=== PATIENT | male | born 1940 | race Caucasian/White ===

== ENCOUNTER → 2016-12-08 | Outpatient (CLI) | payer OTHER ==
[~2016-12-08] MED LIST: ASPI-146 PO; COMMODE 3-IN-11 MIS; ENOX40IN SQ; MELO-1 PO; MULTTAB67 PO; NORC5TAB PO; OMEGCAP PO; SACC1CAP3 PO; TURM500C4; WALKER WHEELS/F1 MIS
== END ==
LOC: CPRE 12:14
PROVIDERS: ATTEND Orthopaedic Surgery
DX: Z01.818 Encounter for other preprocedural examination (principal); M16.12 Unilateral primary osteoarthritis, left hip

== ENCOUNTER 2016-12-20 07:00 | Inpatient (IN) | payer OTHER, MEDICARE ==
[~2016-12-20] VITALS: Ht 165.1 cm; Wt 72.5 kg
[~2016-12-20 07:00] MED LIST changes: -ASPI-146 PO; -COMMODE 3-IN-11 MIS; -ENOX40IN SQ; -NORC5TAB PO; -OMEGCAP PO; -SACC1CAP3 PO; -TURM500C4; -WALKER WHEELS/F1 MIS
[2017-01-24] MEDS ORDERED: VANCOMYCIN 1000 MG/NS 250 ML (for <70 kg) IV SCH ×2 (06:15)
[2017-01-24] MEDS ORDERED: ceFAZolin 2 GM PREMIX 50 ML IV SCH (06:15)
[2017-01-24] MEDS ORDERED: DEXAMETHASONE SOD PHOS 20 MG/5 ML VIAL IV PRN (06:15)
[2017-01-24] MEDS ORDERED: METOPROLOL TARTRATE 25 MG TAB PO PRN (06:15)
[2017-01-24] MEDS ORDERED: SODIUM CHLORIDE 0.9% IV SCH ×2 (06:15→11:30)
[2017-01-24] MEDS ORDERED: INSULIN HUMAN REGULAR 1,000 UNITS/10 ML VIAL SQ PRN (06:15)
[2017-01-24] MEDS ORDERED: TRANEXAMIC ACID IV SCH ×2 (06:15→11:30)
[2017-01-24] MEDS ORDERED: CHLORHEXIDINE GLUCONATE 2 % 1 PACK (2 CLOTHS) TOPICAL PRN (06:15)
[2017-01-24] MEDS ORDERED: EXPAREL PERI-ARTICULAR INJECTION (TOTAL VOL. 60 ML) P-ARTICULR SCH ×2 (06:15)
[2017-01-24] MEDS ORDERED: LACTATED RINGER'S 1000 ML IV PRN (06:15)
[2017-01-24] MEDS ORDERED: SODIUM CHLORID 0.9% 500 ML IV PRN (06:15)
[2017-01-24] MEDS ORDERED: CHLORHEXIDINE GLUCONATE 4% SOLN 120 ML BTL TOPICAL SCH (06:15)
[2017-01-24] MEDS ORDERED: GENTAMICIN SULFATE 80 MG/2 ML VIAL ONE (06:17)
[2017-01-24] MEDS ORDERED: OMEGCAP PO (06:18)
[2017-01-24] MEDS ORDERED: TURM500C4 (06:18)
[2017-01-24] MEDS ORDERED: SACC1CAP3 PO (06:18)
[2017-01-24] MEDS ORDERED: ACETAMINOPHEN 1000 MG/100 ML 100 ML IV ONE (06:32)
[2017-01-24] MEDS ORDERED: FAMOTIDINE 20 MG/2 ML VIAL ONE (06:32)
--- NOTE | 2017-01-24 06:43 | HHI.DCPOC ---
Discharge Care Plan Diagnosis: (1) Osteoarthritis of left hip (2) Status post total hip replacement, left Your Health Problems Are: Difficulty with ADL Goals to Promote Your Health * To prevent worsening of your condition and complications * To maintain your health at the optimal level Directions to Meet Your Goals Take your medications as prescribed Follow your dietary instruction Follow activity as directed Keep your appointments as scheduled Take your immunizations and boosters as scheduled If your symptoms worsen call your PCP, if no PCP go to Urgent Care Center or Emergency Room Smoking is Dangerous to Your Health. Avoid second hand smoke Call the 24-hour hour crisis hotline for domestic abuse at Latrell Ybarra Jan 24, 2017 06:43
--- NOTE | 2017-01-24 06:45 | HHI.FF ---
Face to Face Verification Diagnosis: (1) Osteoarthritis of left hip (2) Status post total hip replacement, left Physical Therapy Gait training, Transfer training, bed to chair Hip: Total hip Left LE Weight Bearing: WB as tolerated Left LE Range of Motion: Active ROM Nursing Nursing: Prasanth daugherty Additional Instructions Do not change dressing unless saturated. First dressing change in the office. I have seen patient Emmanuel Hooks on 01/24/17. My clinical findings support the need for the requested home health care services because: Limited ability to care for self High risk of falls I certify that my clinical findings support that this patient is homebound because: Post-op weakness Unsteady gait/balance Latrell Ybarra Jan 24, 2017 06:45
[2017-01-24] MEDS ORDERED: COMMODE 3-IN-11 MIS (06:47)
[2017-01-24] MEDS ORDERED: WALKER WHEELS/F1 MIS (06:47)
[2017-01-24] MEDS ORDERED: SODIUM CHLOR 0.9% 1000 ML INJ 1,000 ML IV SCH (08:42)
[2017-01-24] MEDS ORDERED: diphenhydrAMINE HCL 50 MG/ML VIAL IV PUSH PRN (08:45)
[2017-01-24] MEDS ORDERED: ONDANSETRON HCL 4 MG/2 ML VIAL IVP PRN (08:45)
[2017-01-24] MEDS ORDERED: BISACODYL 10 MG SUPP RECTAL PRN (08:45)
[2017-01-24] MEDS ORDERED: ACETAMINOPHEN/HYDROcodone 325 MG/5 MG TAB PO PRN (08:45)
[2017-01-24] MEDS ORDERED: NALOXONE HCL 0.4 MG/ML AMP IV PUSH PRN (08:45)
[2017-01-24] MEDS ORDERED: SODIUM CHLORIDE 0.9% FLUSH 5 ML FLUSH IVF PRN (08:45)
[2017-01-24] MEDS ORDERED: MAGNESIUM HYDROXIDE SUSP 30 ML CUP PO PRN (08:45)
[2017-01-24] MEDS ORDERED: ALUMINUM/MAGNESIUM/SIMETH 30 ML CUP PO PRN (08:45)
[2017-01-24] MEDS ORDERED: MORPHINE SULFATE 4 MG/ML INJ IV PUSH PRN (08:45)
[2017-01-24] MEDS ORDERED: Post-op Orders (for Pharmacy) MISC XX ONE (08:45)
--- NOTE | 2017-01-24 08:46 | PD.OP ---
cc: Lc La MD Operative Report Date of Surgery: Jan 24, 2017 Preoperative Diagnosis: Left hip severe osteoarthritis Postoperative Diagnosis: Procedure: Same Anesthesia: Gen. Surgeon: cL La Treatment Plant Mechanic(s): ÁNGEL Gordon The surgical procedure was assisted by my Advanced Registered Nurse Practitioner. My STAIN MAKER presence was necessary throughout this case for the manipulation and positioning of the surgical extremity. My STAIN MAKER was assisting me throughout the duration of this procedure. The skill set of an Advance Registered Nurse Practitioner was medically necessary to complete this procedure. During the surgical case, the surgical supply assistant was working at the back table and the Advance Registered Nurse Practitioner was directly assisting me. Operation and Findings: IMPLANT DESCRIPTION: 1. [place] Gription Cup, acetabular size 54, with 2 screws. 2. [place] AltrX polyethylene, neutral. 4. [place] femoral stem size 13, no collar, standard offset. 5. Femoral head/neck metal, 36, +8.5. ESTIMATED BLOOD LOSS: 350 cc. JUSTIFICATION FOR PROCEDURE: The patient has end-stage osteoarthritis to the hip. There is an attached conservative measures pathway form in the chart that describes the nonoperative measures that were undertaken prior to consideration of surgical management. The patient understood the risks and benefits of surgical management. See my office notes for further details. PROCEDURE: The patient was brought back to the operative theatre. Adequate anesthesia was obtained. The patient received intravenous vancomycin and Ancef. The patient was carefully placed on the operative table. The lower extremity was prepped and draped in the usual sterile fashion. Fluoroscopic images were obtained. We made a standard anterior incision over the hip. We dissected through the TFL fascia, exposing the anterior capsule. Arthrotomy was performed in a T-shaped fashion. The capsule was tagged with a #2 FiberWire. End-stage arthritis was identified. Osteotomy was performed through the femoral neck exposing the acetabulum. Remnants of the labrum were resected and osteophytes were removed. We sequentially reamed the acetabulum. We trialed the hip and placed the final cup into position. This was done under fluoroscopic guidance to obtain the appropriate inclination and anteversion. The cup seemed to have good purchase but because of relatively soft bone we decided to stabilize this with 2 screws which were placed fluoroscopically which both had excellent purchase. A manhole cover was placed into the acetabular component. The initial polyethylene was being handled and dropped. Therefore, we used a new polyethylene. We then placed the final polyethylene into position and confirmed that it was well seated. Capsular attachments on the calcar and the inner aspect of the greater trochanter were resected. On the proximal aspect of the femur we used a rongeur , box osteotome, canal finder, sequential broaches and lateralizing rasp. We calcar planed the proximal femur. Then thoroughly irrigated the wound. We trialed the hip with the appropriate size stem. We placed the final stem in to position and trialed again. The hip was stable while it was externally rotated 70 degrees when the leg was lowered to the floor. The final head was applied, and final fluoroscopic images were obtained. The wound was thoroughly irrigated again. Interarticular injection of liposomal bupivacaine was given. The capsule was closed with #2 FiberWire and #1 Vicryl. The deep fascia was closed with a #2 Stratafix, followed by 2-0 Vicryl in the skin and raza. Postop plan is to weight-bear as tolerated. DVT prophylaxis will be performed with SCDyariel, MEME aragon, early mobilization, and Lovenox followed by aspirin. Lc La MD Jan 24, 2017 08:46
[2017-01-24] MEDS ORDERED: NORC5TAB PO (08:48)
[2017-01-24] MEDS ORDERED: ASPI-146 PO (08:48)
[2017-01-24] MEDS ORDERED: ENOX40IN SQ (08:48)
[2017-01-24] MEDS: SODIUM CHLORIDE 0.9% FLUSH 5 ML FLUSH IVF SCH ×2 (09:00→23:09)
[2017-01-24] MEDS ORDERED: DO NOT ADM ANY ANTICOAGULANT DRUGS PRN (09:03)
[2017-01-24] MEDS ORDERED: *morphine SULFATE 8 MG/ML PERIprocedure ONLY ONE (09:53)
--- NOTE | 2017-01-24 10:28 | RADRPT ---
EXAM DATE/TIME: 01/24/2017 09:42 [facility] COMPARISON: No previous studies available for comparison. INDICATIONS : Post-op left hip. MEDICAL HISTORY : None. SURGICAL HISTORY : None. ENCOUNTER: Initial ACUITY: 1 day PAIN SCORE: 0/10 LOCATION: Left Hip. FINDINGS: Examination of the left hip was performed with AP Pelvis. Left total hip arthroplasty. Both the femor al and acetabular components are properly positioned. No fracture. CONCLUSION: Appropriate postoperative appearance of the left hip status post total arthroplasty. Josse Farrell MD on January 24, 2017 at 10:25 Board Certified Radiologist. This report was verified electronically.
[2017-01-24] MEDS ORDERED: GLYCOPYRROLATE 1 MG/5 ML SYRINGE IV PUSH ONE (12:00)
[2017-01-24] MEDS ORDERED: PROPOFOL 200 MG/20 ML AMP IV ONE (12:00)
[2017-01-24] MEDS ORDERED: ONDANSETRON HCL 4 MG/2 ML VIAL IV PUSH ONE (12:00)
[2017-01-24] MEDS ORDERED: ePHEDrine/NS 25 MG/5 ML SYR IV ONE (12:00)
[2017-01-24] MEDS ORDERED: LIDOCAINE HCL 1% PF 5 ML AMPULE OTHER ONE (12:00)
[2017-01-24] MEDS ORDERED: MIDAZOLAM HCL 2 MG/2 ML VIAL IV ONE (12:00)
[2017-01-24] MEDS ORDERED: NEOSTIGMINE 3 MG/3 ML SYR IV ONE (12:00)
[2017-01-24] MEDS ORDERED: ROCURONIUM INJ 50 MG/5 ML SYRINGE IV PUSH ONE (12:00)
--- NOTE | 2017-01-24 12:12 | RADRPT ---
EXAM DATE/TIME: 01/24/2017 07:20 [facility] COMPARISON: No previous studies available for comparison. INDICATIONS : Left total hip arthroplasty. MEDICAL HISTORY : Unobtainable. SURGICAL HISTORY : Unobtainable. ENCOUNTER: Initial ACUITY: 1 day PAIN SCORE: Non-responsive. LOCATION: Left hip FINDINGS: 3 magnified C-arm spot views are centered over the hip and labeled left. There is a total hip prosthe sis in good position. No fracture seen on this style of acquisition. Air is noted within the joint. CONCLUSION: Limited images as detailed above. Emmanuel Limon Jr., MD on January 24, 2017 at 12:10 Board Certified Radiologist. This report was verified electronically.
[2017-01-24 14:20] VITALS: BP 138/85; PULSE 102; RESP 18; TEMP 96.6; O2SAT 98
[2017-01-24 20:05] VITALS: BP 140/76; PULSE 112; RESP 17; TEMP 96.9; O2SAT 99
[2017-01-24] MEDS ORDERED: ZOLPIDEM TARTRATE 5 MG TAB PO PRN (21:00)
[2017-01-25 00:40] VITALS: BP 123/64; PULSE 95; RESP 17; TEMP 97; O2SAT 97
[2017-01-25] MEDS: ACETAMINOPHEN/HYDROcodone 325 MG/5 MG TAB PO PRN ×4 (02:01→16:20)
[2017-01-25 04:00] VITALS: BP 127/71; PULSE 106; RESP 17; TEMP 99.6; O2SAT 97
[2017-01-25 06:56] LABS: HEMATOCRIT 32.6 % (39.0-51.0); MEAN CELL VOLUME 88.3 FL (80.0-100.0); MEAN CORPUSCULAR HEMOGLOBIN 29.2 PG (27.0-34.0); MEAN CORPUSCULAR HGB CONC 33.1 % (32.0-36.0); PLATELET COUNT 274 TH/MM3 (150-450); RED BLOOD COUNT 3.69 MIL/MM3 (4.50-5.90); REVIEW FLAG FINAL; WHITE BLOOD COUNT 14.5 TH/MM3 (4.0-11.0)
[2017-01-25] MEDS ORDERED: DEXAMETHASONE SOD PHOS 20 MG/5 ML VIAL IV ONE (07:45)
[2017-01-25 08:00] VITALS: BP 129/75; PULSE 114; RESP 18; TEMP 96.8; O2SAT 97
[2017-01-25] MEDS ORDERED: ENOXAPARIN SODIUM 40 MG/0.4 ML SYRINGE SQ SCH (08:00)
[2017-01-25 12:00] VITALS: BP 130/71; PULSE 97; RESP 18; TEMP 96.5; O2SAT 98
[2017-01-25 15:25] VITALS: BP 159/72; PULSE 97; RESP 14; TEMP 98.2; O2SAT 97
--- NOTE | 2017-01-25 16:51 | PD.ORT.PN ---
Subjective Post Op Day #: 1 Subjective Remarks Patient is OOB ambulating about the room. Patient reports minimal pain. Patient states he is extremely happy with his hip. Patient requesting to go home tonight. Objective Vitals Vital Signs Date Time Temp Pulse Resp B/P (MAP) Pulse Ox O2 Delivery O2 Flow Rate FiO2 01/25/17 15:25 98.2 97 14 159/72 (101) 97 01/25/17 12:00 96.5 97 18 130/71 (90) 98 01/25/17 08:00 96.8 114 18 129/75 (93) 97 01/25/17 04:00 99.6 106 17 127/71 (89) 97 01/25/17 00:40 97.0 95 17 123/64 (83) 97 01/24/17 20:05 96.9 112 17 140/76 (97) 99 I/O 01/24/17 01/24/17 01/24/17 01/25/17 01/25/17 01/25/17 06:59 14:59 22:59 06:59 14:59 22:59 Intake Total 1747.25 ml 360 ml 340 ml Output Total 500 ml 250 ml Balance 1247.25 ml 360 ml 90 ml Intake Oral 240 ml 360 ml 240 ml IV Total 107.25 ml 100 ml Other 1400 ml Output Urine Total 350 ml 250 ml Estimated Blood Loss 150 ml # Voids 1 # Bowel Movements 0 0 Result Diagram: 01/25/17 0553 Procedures Left AIYANA Objective Remarks Dressing changed today with scant serosanguineous drainage. Incision is well approximated with dermabond mesh intact. No redness or s/s of infection. Calf is soft and nontender to palpation. EHL/TA/G intact. 2+ pedal pulse. + SILT. Assessment & Plan Ortho Post Op Day #: 1 Problem List: Assessment and Plan POD #1: Left AIYANA 1. WBAT LLE 2. Lovenox followed by ASA for DVT prophylaxis 3. Ice to the left knee PRN 4. Stable for discharge home with home health tonight per ortho. 5. F/U in the office with Dr. La or ÁNGEL Valdes as previously scheduled. Latrell Ybarra Jan 25, 2017 16:51
[2017-01-25] MEDS ORDERED: MULTIVITAMINS/MINERALS THERAPEUTIC TAB PO SCH (21:00)
[2017-01-25] MEDS ORDERED: DOCUSATE SODIUM 100 MG CAP PO SCH (21:00)
== END 2017-01-25 17:18 | disposition home health service (06) | DRG 470 ==
LOC: EDUNIT# 07:00 → HSDI 01-24 05:45 → N06B 01-24 14:02
PROVIDERS: ADMIT Orthopaedic Surgery; ATTEND Orthopaedic Surgery
PROC: 0SRB0JA Replacement of Left Hip Joint with Synthetic Substitute, Uncemented, Open Approach (ICD-10-PCS; principal; 2017-01-24 06:44)
DX: M16.12 Unilateral primary osteoarthritis, left hip (principal)
CPT/HCPCS: 73502; 76000; 85027; 86850; 86900; 86901; C1776; C9290; J0131; J0690; J1100; J1580; J1650; J2250; J2270; J2405; J2710; J3010; J3370; J7030; J7050; J7120

== ENCOUNTER 2016-12-28 07:46 | Day surgery (SDC) | payer OTHER ==
[~2016-12-28] VITALS: Ht 165.1 cm; Wt 76.6 kg
[2016-12-28] MEDS ORDERED: IOHEXOL 350 MG/ML 100 ML BTL (for Cath Lab) OTHER ONE (07:47)
[2016-12-28] MEDS ORDERED: diphenhydrAMINE HCL 50 MG/ML VIAL ONE (08:18)
[2016-12-28] MEDS ORDERED: methylPREDNISolone SOD SUCC 125 MG/2 ML VIAL ONE (08:18)
[2016-12-28 08:39] VITALS: BP 159/100; PULSE 80; RESP 17; TEMP 98.2; O2SAT 97
[2016-12-28 09:00] LABS: AUTOMATED NEUTROPHIL # 4.5 TH/MM3 (1.8-7.7); BASOPHIL % 0.3 % (0.0-2.0); EOSINOPHIL # 0.1 TH/MM3 (0-0.4); EOSINOPHIL % 1.4 % (0.0-4.0); HEMATOCRIT 38.8 % (39.0-51.0); HEMO FLAGS DIFF FINAL; LYMPH % 22.9 % (9.0-44.0); LYMPHOCYTE # 1.7 TH/MM3 (1.0-4.8); MEAN CELL VOLUME 90.7 FL (80.0-100.0); MEAN CORPUSCULAR HEMOGLOBIN 29.7 PG (27.0-34.0); MEAN CORPUSCULAR HGB CONC 32.8 % (32.0-36.0); MONO % 12.9 % (0.0-8.0); NEUT % 62.5 % (16.0-70.0); PLATELET COUNT 237 TH/MM3 (150-450); RED BLOOD COUNT 4.28 MIL/MM3 (4.50-5.90); RED CELL DISTRIBUTION WIDTH 14.1 % (11.6-17.2); WHITE BLOOD COUNT 7.2 TH/MM3 (4.0-11.0)
[2016-12-28 09:07] LABS: APTT (PATIENT) 31.6 SEC (24.3-30.1); INTERNATIONAL NORMALIZED RATIO 1.1 RATIO
[2016-12-28 09:14] LABS: BICARBONATE 30.2 MEQ/L (21.0-32.0)
[2016-12-28] MEDS ORDERED: HEPARIN-NS/PF INJ 1,000 ML ONE (09:42)
[2016-12-28] MEDS ORDERED: MIDAZOLAM HCL 2 MG/2 ML VIAL ONE (09:43)
[2016-12-28] MEDS ORDERED: NITROGLYCERIN INJ 5 ML ONE (09:44)
[2016-12-28] MEDS ORDERED: HEPARIN SODIUM - IV 10,000 UNITS/10 ML VIAL ONE (09:44)
[2016-12-28] MEDS ORDERED: VERAPAMIL HCL 5 MG/2 ML VIAL ONE (09:44)
[2016-12-28] MEDS ORDERED: MISC INFORMATION XX ONE (11:00)
[2016-12-28] MEDS ORDERED: FAMOTIDINE 20 MG/2 ML VIAL ONE (11:03)
--- NOTE | 2016-12-28 11:06 | CATHPROC ---
O-film HIS Report Study Information Study Number Admission Scheduled Start Study Start [id number] Dec 28 2016 7:46AM 12/28/2016 Dec 28 2016 9:21AM David Service Cardiac Catheterization Admit Source Facility Department Other [facility] - Program Project Manager Physician and Clinical Staff Initial Ayaan Hatfield Director Of User Experience So Carrion,EDITA Other Timothy Hdz,RT(R) Recorder Ruthy Reilly,RT(R) Scrub Ghada Goode,LIBRARY ATTENDANT TECH2 Procedures Performed Procedure Location (Site) Vessel Name Coronary Angiograms LCA Left Coronary Coronary Angiograms RCA Right Coronary Coronary Angiograms Brach. Art. (right) Brachial Art. L Heart Cath Wire insertion Radial (right) Radial Art. Equipment Time Electrical Lineman Description Size Mfg Part Number Used/Scraped TRANSDUCER, TRUWAVE [id number] 09:39 AVITIA CAVANAUGH * Used W/STOCKCOCK *[id number] *[id number] *[id number] *[id number] [id number] *[id number] WIRE, HYDROSTEER 150CM [id number] 10:05 DAIG/[employer]. [employer] 150CM Used ANGLED GLIDE *[id number] 09:39 Eyegroove PACK, CCL CUSTOM * Used *[id number] 09:39 Eyegroove SUPPORT, ARTERIAL ADULT 33047 *[id number] Used BAND, RADIAL COMPRESSION TR [id number] 10:42 AYLIEN [employer] 24CM Used SHORT 24 *[id number] 10:27 Huupy PACK, ANGIOPLASTY * [id number] Used [id number] 09:39 AY[employer]EN [employer] WIRE, EXCHANGE 260CM 3MMJ 260CM Used *[id number] 09:39 NAMIC MANIFOLD, 4 PORT * Used *[id number] 09:39 NYCOMED OMNIPAQUE, 350 MG, 150ML 150ML [id number] Used [id number] 09:39 LE MEDICAL BLANKET,WARM AIR CCL * Used *[id number] SHEATH, FR6 TRANSRADIAL [id number] 09:39 TEREstadeboda MEDICAL FR 6 Used SLENDER 10CM *[id number] 10:26 VOL[place]O PRIME WIRE, VERRATA 185CM 185CM [id number] *[id number] Used Equipment Model, Serial, Lot Number and Expiration Data Description Model Number Serial Number Lot Number Expiration Date PRIME WIRE, VERRATA 185CM [id number] 11-07-2019 WIRE, HYDROSTEER 150CM [id number] 09-07-2019 ANGLED GLIDE History: Allergies Allergy Reaction iodine Swelling History: Risk Factors Family History of Hypertension Dyslipidemia Previous DE Previous Heart Failure Premature CAD Yes Yes Yes No No Prior Valve Prior PCI Prior CABG Surgery No No No Cerebrovascular Peripheral Artery Chronic Lung On Dialysis Diabetes Disease Disease Disease No No No No No History: Stress Tests Stress or Imaging Studies Performed Yes Standard Exercise Stress Test No Stress Echo No Stress Test SPECT Stress Test SPECT Result Stress Test SPECT Ischemia Risk/Extent Yes Positive Intermediate Stress Test CMR No Cardiac CTA Coronary Calcium Score No No History: Other Disease Selection Items CAD HTN History: Other Current Smoker Method Quit Packs a Day Years Used Pack Years No Cigarettes 15 Years Ago 1 25 25 Labs Hgb (g/dl) Hct (%) WBC (l/cumm) Platelets (thousands) 11.60-17.00 35.00-51.00 4.00-11.00 150.00-450.00 12.7 38.8 7.2 237 Glucose (mg/dl) BUN (mg/dl) Creatinine (mg/dl) BUN:Creatinine (1:x) 74.00-106.00 7.00-18.00 0.50-1.30 10.00-20.00 90 9 0.6 15 Na (meq/l) K (meq/l) 136.00-145.00 3.50-5.10 139 4 INR (PTT:PT) 0.90-1.10 1.1 CPK-MB (ng/ML) 0.50-3.60 Not Drawn Medication Medication Total Dose (Bolus/Oral) Medication Total Dosage/Unit 1% XYLOCAINE 20 mL FENTANYL 50 mcg HEPARIN 5300 units PEPCID 20 mg RADIAL COCKTAIL 5 mL (Bolus) VERSED 0.5 mg Medications (Bolus/Oral) Medication Time Given Dosage/Unit Administered By Reason PEPCID 12/28/2016 9:25:48 AM 20 mg So Carrion 20 mg PEPCID given pre op by So Carrion RN in Left Antecubital via Peripheral IV. Ordered by Pet Ayaan skelton. 1% XYLOCAINE 12/28/2016 10:00:40 AM 20 mL Ayaan Lui 20 mL 1% XYLOCAINE given in lab by Ayaan Lui in Right Radial via Subcutaneous. Ordered by Pet erson, Vincent. VERSED 12/28/2016 10:00:51 AM 0.5 mg So Carrion 0.5 mg VERSED given in lab by So Carrion RN in Left Antecubital via Peripheral IV. Ordered by Ayaan Steele. FENTANYL 12/28/2016 10:01:00 AM 50 mcg So Carrion 50 mcg FENTANYL given in lab by So Carrion RN in Left Antecubital via Peripheral IV. Ordered by Ayaan Lui. Ntg 200mcg Verapamil 2.5mg Heparin RADIAL COCKTAIL 12/28/2016 10:02:20 AM 5 mL (Bolus) Ayaan Lui 3000U 5 mL (Bolus) RADIAL COCKTAIL given in lab by Ayaan Lui in Right Radial via Radial. Using [Annamarie dinaon Name]. Ordered by Ayaan Lui. Reason: Ntg 200mcg Verapamil 2.5mg Heparin 3000U. HEPARIN 12/28/2016 10:24:24 AM 5300 units So Carrion 5300 units HEPARIN given in lab by So Carrion, EDITA in Left Antecubital via Peripheral IV. Ordered by Ayaan Lui. Initial Case Assessment Cardiovascular HR Rhythm NIBP Chest Pain 97 sr 172/102 0 Edema Present Skin color Skin None Normal Warm Dry Circulatory - Right Pulses Posterior Tibial Femoral Radial 1 3 3 Scale (0,1,2,3,4,d) Scale (0,1,2,3,4,d) Neurological State Oriented to time-place- Alert Moves all extremities person Respiration - General Respiration Rate SpO2 (%) (B/min) 18 98 Chronological Log Time Study Chronological Log 9:25:48 20 mg PEPCID given pre op by So Carrion, EDITA in Left Antecubital via Peripheral IV. Order ed by Ayaan Lui. 9:30:37 Patient arrived via Bed. 9:33:44 Patient Name, D.O.B, / Armband Verified By R.N. 9:33:45 Consent signed by the physician and the patient and verified by the Program Project Manager staff. 9:33:46 Verbal Stimulation=2 Physical Stimulation=2 Airway=2 Respiration=2 TOTAL=8. (0=absent, 1=lujan ited, 2=present) 9:33:46 Pre-op and post- op instructions given; patient acknowledges understanding of instructions. 9:33:49 Allens test performed on the right radial and ulnar artery. 9:33:53 Patient has been NPO for More than 6Hrs. 9:33:53 Skin Breakdown- none per pt 9:33:56 Patient Warmer Placed on the Table. 9:33:56 Fredy Prominences Protected 9:33:58 A # 20 IV was noted in the Antecubital (left). Grade = 0 9:33:59 History and physical on the chart or being dictated. Assessment: Initial Case, HR=97 BPM, Rhythm=sr, HPEY=854/102 mmhg, Chest Pain=0, Edema=None, Co gerber=Normal, Skin = Warm, Dry 9:34:01 Right Pulses: Post Tib=1, Femoral=3, Radial=3 Neurological: State=Alert, Ox3, MERA Respiration: Resp=18 B/min, SpO2=98 % 9:39:01 Reference ECG taken Vitals capture started with the following parameters, Patient=Adult, Interval=5 min, Initial Pr diycjp=602 mmHg, 9:39:57 Deflation Rate=5 mmHg, Cuff placed on Right Arm 9:40:55 HR=91 bpm, YKFL=159/102 mmhg, SpO2=97.0 %, Resp=12 B/min, Lawson=2 9:45:38 HR=96 bpm, JPIM=044/108 mmhg, SpO2=98.0 %, Resp=17 B/min, Lawson=2 9:46:18 Bilateral groins and right radial prepped with 2% chlorhexidine, and draped after a 3 min. w aiting time. 9:50:25 Pressure channel 1 zeroed. 9:50:37 HR=94 bpm, LNAW=964/108 mmhg, BtE8=186.0 %, Resp=21 B/min, Lawson=2 9:55:36 HR=94 bpm, YQCK=466/95 mmhg, SpO2=98.0 %, Resp=16 B/min, Lawson=2 Time Out. Correct patient, correct procedure, correct physician, power injector not loaded with contrast with surgical 9:59:34 team present. Time Out Concurred by MD, individual staff in procedure. 10:00:25 Case Start 10:00:35 HR=94 bpm, DAQJ=587/100 mmhg, SpO2=96.0 %, Resp=15 B/min, Lawson=2 20 mL 1% XYLOCAINE given in lab by Ayaan Lui in Right Radial via Subcutaneous. Ordered by Hu, 10:00:40 Ayaan. 10:00:51 0.5 mg VERSED given in lab by So Carrion, RN in Left Antecubital via Peripheral IV. Ord ered by Ayaan Lui. 50 mcg FENTANYL given in lab by So Carrion, EDITA in Left Antecubital via Peripheral IV. Order ed by Hu, 10:01:00 Ayaan. 10:02:03 Access site was Right Radial Artery. A SHEATH, FR6 TRANSRADIAL SLENDER 10CM FR 6 was advanced into the Radial (right) using the Perc utaneous 10:02:14 technique. 5 mL (Bolus) RADIAL COCKTAIL given in lab by Ayaan Lui in Right Radial via Radial. Usin g [Solution Name]. 10:02:20 Ordered by Ayaan Lui. Reason: Ntg 200mcg Verapamil 2.5mg Heparin 3000U. A JR 4.0 INFINITI CATHETER FR 5 was advanced over a wire. OMNIPAQUE, 350 MG, 150ML 150ML was us ed for 10:03:46 injections. 10:05:18 Wire removed 10:05:20 The Brach. Art. (right) was injected and visualized at various angles. OMNIPAQUE, 350 MG, 1 50ML 150ML used. 10:05:32 WN=749 bpm, RVIP=973/93 mmhg, SpO2=94.0 %, Resp=19 B/min, Lawson=2 10:06:05 A WIRE, HYDROSTEER 150CM ANGLED GLIDE 150CM was inserted via Radial (right). 10:07:31 Wire removed Recorded Pressure: LV, HR=97, Condition=Condition 1 10:07:54 (Left Ventricle) LV 135/2/4 Recorded Pressure: LV, Ao, HR=97, Condition=Condition 1 10:08:03 (Left Ventricle) LV 132/3/3, (Aorta) Ao 137/90/111 10:08:43 The RCA was injected and visualized at various angles. OMNIPAQUE, 350 MG, 150ML 150ML used . Recorded Pressure: Ao, HR=98, Condition=Condition 1 10:09:20 (Aorta) Ao 143/94/117 10:10:29 HR=94 bpm, GJPB=839/94 mmhg, SpO2=93.0 %, Resp=22 B/min, Lawson=2 After removing the current catheter a JL 3.5 INFINITI CATHETER FR 5 was advanced over a WIRE, E XCHANGE 260CM 10:10:41 3MMJ 260CM. After removing the current catheter a JL 4.0 INFINITI CATHETER FR 6 was advanced over a WIRE, E XCHANGE 260CM 10:12:47 3MMJ 260CM. 10:14:43 The LCA was injected and visualized at various angles. OMNIPAQUE, 350 MG, 150ML 150ML used . 10:15:32 HR=94 bpm, UQBE=955/93 mmhg, SpO2=95.0 %, Resp=22 B/min, Lawson=2 10:20:35 HR=93 bpm, TNZJ=533/94 mmhg, SpO2=98.0 %, Resp=24 B/min, Lawson=2 After removing the current catheter a JL 4.0 GUIDE CATHETER FR 6 was advanced over a WIRE, EXCH SAMUEL 260CM 10:21:00 3MMJ 260CM. 5300 units HEPARIN given in lab by So Carrion, EDITA in Left Antecubital via Peripheral IV. Or dered by Hu 10:24:24 Ayaan. 10:25:36 HR=93 bpm, FKPR=182/98 mmhg, SpO2=96.0 %, Resp=24 B/min, Lawson=2 10:28:40 Pressure channel 1 zeroed. 10:29:58 A PRIME WIRE, VERRATA 185CM 185CM was inserted via Radial (right). 10:30:37 ZZ=699 bpm, ROLY=854/110 mmhg, SpO2=97.0 %, Resp=23 B/min, Lawson=2 10:35:31 Interventional wire has crossed the lesion 10:35:38 HR=94 bpm, KHEQ=441/106 mmhg, SpO2=98.0 %, Resp=22 B/min 10:35:42 Flow Wire was was placed in the OM2 Prox. The FFR measures ~FFR~ percent. The IFR measures 100 Percent. 10:37:48 The wire was removed. 10:37:55 Catheter was removed 10:40:41 HR=91 bpm, SCIT=217/87 mmhg, SpO2=96.0 %, Resp=9 B/min, Pain=0, Justen=10, Lawson=2 Radial Compression Device Used. 15 mLs of air placed in BAND, RADIAL COMPRESSION TR SHORT 24 24 CM. Affected 10:41:41 hand 97 % O2 saturation. 10:42:25 Case End 10:42: Sterile dressing applied to site 10:42: No case complications noted. 10:42:27 Cine recording checked. 10:42:28 Bedside Report will be given. 10:42:30 Contrast Scanned 10:42:32 A Left Heart Cath was performed. 10:42:32 Verbal Stimulation=2 Physical Stimulation=2 Airway=2 Respiration=2 TOTAL=8. (0=absent, 1=li mited, 2=present) 10:45:40 HR=87 bpm, AKOW=890/78 mmhg, SpO2=95.0 %, Resp=16 B/min, Pain=0, Justen=10, Lawson=2 10:52:33 Patient moved to [facility] End Study - Contrast Media Used In Study Contrast Total Opened (mL) Total Used (mL) Total Wasted (mL) Omnipaque 100 100 0 End Study - Maximum Contrast Load Max Contrast Load (mL) 638.3 End Study - Radiation Exposure Fluoro Time (minutes) 8.4 End Study - Patient Disposition Complications Transferred To Interventional Outcome No Program Project Manager Holding No attempt made
--- NOTE | 2016-12-28 11:57 | MA ---
cc: AYAAN SALMON DO DATE December 28, 2016 PROCEDURE Left heart catheterization, coronary angiogram, IFR OM2, moderate sedation - 42 minutes. PREPROCEDURE DIAGNOSIS Abnormal stress test. Preoperative evaluation. POSTPROCEDURE DIAGNOSIS Mild coronary artery disease. MEDICATIONS 1. Solu-Medrol 125 mg. 2. Pepcid 20 mg. 3. Benadryl 25 mg. 4. Versed 0.5 mg. 5. Fentanyl 50 mcg. 6. Heparin 5300 units. CONTRAST USED 100 cc. FLUOROSCOPY 8.4 minutes. MODERATE SEDATION 42 minutes. ESTIMATED BLOOD LOSS 10 cc. PROCEDURAL SUMMARY Emmanuel Hooks is a pleasant 76-year-old male who was seen in the outpatient office for consideration of left hip surgery. He underwent stress testing which showed ischemia in the inferior lateral, lateral and apex and was considered an intermediate risk stress test. Because of this he was recommended cardiac catheterization preoperatively. The risks, benefits and alternatives were explained to him and he consented as such. He was brought to lab and prepped in the usual sterile fashion. He was prepped for his IODINE ALLERGY with Solu-Medrol, Benadryl and Pepcid. The right radial artery was accessed using modified Seldinger technique and placement of a 5/6 Croatian sheath. This was easily aspirated and flushed. The JR-4 was advanced over a J-wire to the upper arm with some difficulty noted at that point. Angiogram shows a tortuous vessel and this was managed with a Glidewire. The JR-4 was advanced to the ascending aorta and across the aortic valve for measurement of left ventricular pressures. This was pulled back across the aortic valve showing no significant gradient of aortic stenosis. The JR-4 was used for selective angiography of the right coronary system. This was exchanged out for a JL-3.5, but was unable to engage the left coronary system, so this was exchanged out for a JL-4. The JL-4 was used for selective angiography of the left coronary system. There was concern for a moderate lesion in the second obtuse marginal and because this is the area of ischemia on a stress test, I felt that this further needed to be investigated as it did not appear to be significantly stenosed enough to cause ischemia. A JL-4 catheter was exchanged for a JL-4 guide. Heparin was given as an additional anticoagulant. [employer] [facility] wire was advanced into the second obtuse marginal and IFR was recorded with a value of 1.0 showing no significant stenosis. The wire was removed and final angiogram shows no disruption of the coronary vessels. Radial band was placed over the arteriotomy site for hemostasis. The patient left the Medical Assistant Float cardiovascularly stable. FINDINGS LEFT MAIN: The patient has what appears to be separate ostia for both his LAD and circumflex. LAD: Normal-sized vessel with mild luminal irregularities in the proximal portion and no significant disease distally. It does give off one major diagonal with no disease noted. LEFT CIRCUMFLEX: A large dominant vessel. It gives off two major obtuse marginals with a PDA. The second obtuse marginal has a 40-50% lesion in the proximal portion. IFR of this lesion was 1.0 showing no significant stenosis. Otherwise there is tortuosity throughout the obtuse marginals most likely due to prolonged hypertension. RCA: Small, nondominant vessel. LVEDP: 3 IMPRESSIONS 1. Abnormal stress test showing inferior lateral and lateral ischemia. 2. Preoperative evaluation for hip surgery. 3. Mild coronary artery disease by cardiac catheterization as above. RECOMMENDATIONS 1. Mr. Hooks underwent cardiac catheterization and had no significant stenosis. 2. He may proceed to surgery as a moderate cardiovascular risk. This information will be relayed to Dr. Doshi for further recommendations. 3. He will follow up with Dr. Doshi as previously scheduled. Thank you for allowing me to see Emmanuel Hooks. If there are any questions, please do not hesitate to call. Ayaan Salmon DO VGP/SSB /11:03 AM /11:36 AM
--- NOTE | 2016-12-28 15:24 | EKG ---
Date Performed: 12/28/2016 Time Performed: 08:47:26 PTAGE: 76 years EKG: Sinus rhythm with PVC(s) Leftward axis Right bundle branch block Possible septal infarct - age undetermined Later al ST-T changes may be due to myocardial ischemia Abnormal ECG NO PREVIOUS TRACING DOCTOR: Ayaan Lui Interpretating Date/Time 12/28/2016 15:23:13
== END 2016-12-28 16:46 | disposition home or self-care (01) ==
LOC: HDIC 07:46 → HCAT 07:46
PROVIDERS: ATTEND Nuclear Medicine Nuclear Cardiology
DX: I25.10 Atherosclerotic heart disease of native coronary artery without angina pectoris (principal); I49.3 Ventricular premature depolarization; Z01.812 Encounter for preprocedural laboratory examination; Z01.810 Encounter for preprocedural cardiovascular examination
CPT/HCPCS: 80048; 85025; 85610; 85730; 93005; 93458; 93571; C1769; C1887; C1893; J1200; J1644; J2250; J2930; J3010; Q9967